=== PATIENT | female | born 1940 | race American Indian/Alaskan Native ===

== ENCOUNTER 2016-08-12 10:08 | Outpatient (CLI) | payer MEDICARE, OTHER ==
--- NOTE | 2016-08-13 09:46 | Nuclear Medicine Report ---
NUCLEAR MEDICINE WHOLE BODY BONE SCAN HISTORY: Left breast cancer, left lymphedema, left arm. TECHNIQUE: Anterior and posterior whole body images were obtained after 25 mCi of technetium 99 M. MDP. FINDINGS: No previous bone scan at this facility. Correlation is made with a PET CT dated 04/18/16. The bone scan images demonstrate mild diffuse increased uptake in the L5 vertebral body. No other areas of suspicious uptake are identified. There is normal renal and soft tissue activity. IMPRESSION: Slightly suspicious increased uptake at the level of L5. Please note that no discrete abnormality is identified in this area on the PET CT dated 04/18/16. This uptake may be degenerative in nature. Consider further evaluation with MRI lumbar spine with and without contrast if needed.
== END 2016-08-12 10:09 | disposition home or self-care (01) ==
LOC: NM 10:08
PROVIDERS: ATTEND Internal Medicine Hematology & Oncology
DX: C50.919 Malignant neoplasm of unspecified site of unspecified female breast (principal); Z80.3 Family history of malignant neoplasm of breast; Z79.899 Other long term (current) drug therapy
CPT/HCPCS: 78306; A9503

== ENCOUNTER 2016-09-09 10:13 | Outpatient (CLI) | payer MEDICARE, OTHER ==
--- NOTE | 2016-09-09 12:53 | Magnetic Resonance Report ---
MRI of the lumbar spine with and without contrast. Procedure: Sagittal T1-weighted, T2-weighted, inversion recovery images, axial T1 and T2-weighted images, and postcontrast sagittal and axial T1-weighted images with fat saturation were used. Findings: There are numerous abnormal areas of hyperintense T2 and hypointense T1 signal throughout the lumbar vertebra. The greatest degree of involvement involves the L4 vertebral body with extension into the left pedicle. There is no evidence of compression fracture. The upper lumbar discs are normal. At L4-5, there is a mild broad-based disc bulge with no evidence of significant impingement or spinal stenosis. Multiple lesions are also seen in the visualized sacrum. Numerous lesions are seen throughout the iliac bones bilaterally, greater on the left. Most of the above lesions demonstrate homogeneous contrast enhancement. Extensive metastatic disease is seen in the T12 vertebra. A prominent left renal cyst is incidentally noted. Impression: Innumerable metastatic lesions throughout the lumbar spine, sacrum, and iliac bones. No compression fractures or extension into the spinal canal is present. However, there is a prominent metastatic lesion involving the left pedicle of the L4 vertebra, as well as other metastatic foci in the posterior elements.
== END 2016-09-09 10:14 | disposition home or self-care (01) ==
LOC: MRI 10:13
PROVIDERS: ATTEND Internal Medicine Hematology & Oncology
DX: C79.51 Secondary malignant neoplasm of bone (principal); C79.89 Secondary malignant neoplasm of other specified sites; I10 Essential (primary) hypertension; M53.87 Other specified dorsopathies, lumbosacral region; N28.1 Cyst of kidney, acquired
CPT/HCPCS: 72158; A9577

== ENCOUNTER 2016-11-05 17:40 | Emergency (ER) | payer MEDICARE, OTHER ==
--- NOTE | 2016-11-05 18:39 | Emergency Department Report ---
Entered by LEEANNA WONG, acting as scribe for JULIO SUTTON NP. Chief Complaint: Abdominal Pain Stated Complaint: LT SIDE PAIN - HPI History of Present Illness: 76 y/o female, nontoxic, well developed, NAD, c/o LUQ abdominal pain beginning last night, aggravated by lying on her left side. Denies fever, chills, NVD, chest pain, SOB, [place], epigastric pain, dizziness, blurry vision. Patient was seen in at [facility] [address] Piper for muscle spasms - Exam Vital Signs: Vital Signs 11/05/16 17:52 Temperature 98.2 F Pulse Rate 78 Respiratory 14 Rate Blood Pressure 158/83 O2 Sat by Pulse 95 Oximetry Physical Exam: GENERAL: The patient is a well-developed, well-nourished male in no apparent distress. Patient is alert and oriented x3. ABDOMEN: Soft, nontender, and nondistended. Positive bowel sounds. Negative for epigastric tenderness. No hepatosplenomegaly was noted. No guarding or rebound tenderness, negative epigastric bruit. Negative psoas sign, negative cadet sign, negative McBurneys sign MSE screening note: Focused history and physical exam performed. Due to findings the following was ordered: CBC, amylase, lipase, CMP, UA, ED Disposition for MSE Condition: Stable Instructions: Abdominal Pain (ED) This documentation as recorded by the scribe,LEEANNA WONG,accurately reflects the service I personally performed and the decisions made by ,JULIO SUTTON, ARNALDO.
[2016-11-05 19:09] LABS: Hematocrit 36.9 % (30.3-42.9); Hemoglobin 12.3 gm/dl (10.1-14.3); Mean Corpuscular HGB Conc 34 % (30-34); Mean Corpuscular Hemoglobin 32 pg (28-32); Mean Corpuscular Volume 94 fl (79-97); Platelet Count 220 K/mm3 (140-440); Red Blood Count 3.91 M/mm3 (3.65-5.03); White Blood Count 5.2 K/mm3 (4.5-11.0)
[2016-11-05 19:23] LABS: Amylase 153 units/L (27-131); Lipase 35 units/L (13-60)
[2016-11-05 19:29] LABS: Alanine Aminotransferase 23 units/L (7-56); Albumin 3.6 g/dL (3.9-5); Albumin/Globulin Ratio 1.2 %; Alkaline Phosphatase 144 units/L (35-129); Anion Gap 15 mmol/L; Blood Urea Nitrogen 18 mg/dL (7-17); Calcium 9.8 mg/dL (8.4-10.2); Carbon Dioxide 28 mmol/L (22-30); Chloride 100.4 mmol/L (98-107); Glucose 138 mg/dL (65-100); Potassium 3.4 mmol/L (3.6-5.0); Sodium 140 mmol/L (137-145); Total Protein 6.5 g/dL (6.3-8.2)
[2016-11-05 20:05] LABS: Basophils % (Manual) 0 % (0.0-1.8); Blastocytes % (Manual) 0 %; Diff Status Complete; Eosinophils % (Manual) 0 % (0.0-4.3); Platelet Estimate Consistent w Auto; RBC Morphology Normal
[2016-11-05 21:52] LABS: Bilirubin,Urine NEG (Negative); Blood,Urine NEG (Negative); Ketones,Urine NEG (Negative); Leukocyte Esterase,Urine LG (Negative); Mucus,Urine FEW /HPF; Nitrite,Urine NEG (Negative); Protein,Urine <15 mg/dL mg/dL (Negative); Urobilinogen,Urine < 2.0 mg/dL (<2.0)
[2016-11-06] MEDS ORDERED: TYLENOL PO ONE (00:16)
--- NOTE | 2016-11-06 00:17 | Emergency Department Report ---
HPI - General Chief Complaint: Abdominal Pain Time Seen by Provider: 11/06/16 00:02 - HPI HPI: The patient is a 76-year-old female who presents for evaluation of left upper quadrant abdominal pain. The patient reports pain for the past 3 days, 10/10 in severity, sharp in quality, exacerbated with lifting of the left arm, and improved with by mouth pain medication. 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 She believes that she has a strained muscle. The patient denies trauma to the chest, flank, or abdomen, fever, chills, night sweats, chest pain, dyspnea, cough, hemoptysis, syncope, vomiting, diarrhea, blood in the stool, dark tarry stool, dysuria, hematuria, flank pain, genital discharge, inability to pass flatus. ED Past Medical Hx - Past Medical History Previous Medical History?: Yes Hx Hypertension: Yes Hx Heart Attack/AMI: No Hx GERD: Yes Hx Liver Disease: No Hx Renal Disease: No Hx of Cancer: Yes (left mastectomy) Hx HIV: No Additional medical history: Muscle spasms - Surgical History Past Surgical History?: Yes Additional Surgical History: partial hyst, left chest port inserted and removed - Social History Smoking Status: Former Smoker Substance Use Type: Prescribed - Medications Home Medications: Home Medications Medication Instructions Recorded Confirmed Last Taken Type Doxazosin Mesylate 8 mg PO DAILY 07/06/13 06/14/14 06/13/14 History Letrozole (Nf) [Femara (Nf)] 2.5 mg PO DAILY 07/06/13 06/14/14 06/13/14 History Rabeprazole Sodium [Aciphex] 20 mg PO DAILY 07/06/13 06/14/14 06/13/14 History Clindamycin [Clindamycin CAP] 300 mg PO Q8H #30 cap NS 07/17/13 06/14/14 Rx Fluticasone [Flonase] 1 spray NS QDAY #1 bottle 06/04/14 06/14/14 06/13/14 Rx Oseltamivir [Tamiflu] 75 mg PO BID 5 Days 06/04/14 06/14/14 06/13/14 Rx Atenolol [Tenormin] 50 mg PO DAILY 12/06/14/14 06/13/14 History Gabapentin 100 mg PO DAILY 06/14/14 06/14/14 06/13/14 History Mag Hydrox/Al Hydrox/Simeth 15 ml PO QID PRN #1 bottle 06/14/14 Unknown Rx [Maalox Advanced Suspension] Olmesartan/Hydrochlorothiazide 1 tab PO QDAY 06/14/14 06/14/14 06/13/14 History [Benicar HCT 40-25 mg] Ondansetron [Zofran Odt] 4 mg PO Q6H PRN #20 tab.rapdis 06/14/14 Unknown Rx Potassium Chloride [KCl 20 meq 20 meq PO QDAY #3 day 06/14/14 Unknown Rx ORAL LIQ] hydrALAZINE [Apresoline] 25 mg PO DAILY 06/14/14 06/14/14 06/13/14 History Acetaminophen/Codeine [Tylenol #3] 1 tab PO Q6H PRN #12 tab 11/06/16 Unknown Rx ED Review of Systems ROS: Stated complaint: LT SIDE PAIN Other details as noted in HPI Constitutional: denies: fever ENT: denies: throat or neck pain Respiratory: denies: cough, shortness of breath Cardiovascular: denies: chest pain Endocrine: denies unexplained weight loss or gain Gastrointestinal: reports abdominal pain, nausea Genitourinary: denies: dysuria Musculoskeletal: denies: leg swelling Skin: denies: rash Neurological: denies: headache Hematological/Lymphatic: denies: easy bleeding or easy bruising Psych: denies sadness or hopelessness Physical Exam - Physical Exam Vital Signs: Vital Signs 11/05/16 17:52 Temperature 98.2 F Pulse Rate 78 Respiratory 14 Rate Blood Pressure 158/83 O2 Sat by Pulse 95 Oximetry Physical Exam: General: well-nourished, well-developed, no acute distress Head: Normocephalic, atraumatic Eyes: normal sclera ENT: Mucous membranes are pink and moist Neck: trachea midline, neck supple, No neck stiffness, no cervical adenopathy Respiratory: Breath sounds equal bilaterally, no wheezing, rales, or rhonchi Cardio: S1 and S2 present, no murmurs, rubs, gallops, capillary refill is brisk Abdomen: Normoactive bowel sounds, soft abdomen, left upper quadrant tenderness to palpation present, no rigidity, no guarding or rebound tenderness Chest WALL/Back: tenderness to palpation to the left lower chest wall/ intercostal space 8-9 at the anterior and midaxillary lines, no redness, ecchymosis, swelling, crepitus, or paradoxical chest wall movement, no CVA tenderness with percussion Musc: No pitting edema Skin: No rash Neuro: no facial drooping, normal speech Psych: Normal affect ED Course Vital Signs 11/05/16 17:52 Temperature 98.2 F Pulse Rate 78 Respiratory 14 Rate Blood Pressure 158/83 O2 Sat by Pulse 95 Oximetry ED Medical Decision Making - Lab Data Result diagrams: 11/05/16 18:38 11/05/16 18:38 - Medical Decision Making The patient was seen and examined by myself. The patient is placed on a traffic monitor specialist and continuous pulse ox. On initial evaluation, the patient was found to be in no distress. Evaluation orders are placed. The patient is given a Tylenol Tylenol for her pain. Lab results were non-concerning including WBC, hemoglobin, hematocrit, electrolytes, renal function, LFTs, lipase, and urinalysis. The patient was reevaluated and reported that their symptoms were markedly improved. The patient is stable for discharge with outpatient follow- up. The patient is given follow-up and return instructions. The patient expressed understanding and agreed with the plan. The patient is discharged in stable condition. Critical care attestation.: If time is entered above; I have spent that time in minutes in the direct care of this critically ill patient, excluding procedure time. ED Disposition Clinical Impression: Rib pain on left side, Acute abdominal pain in left upper quadrant Disposition: DISCHARGED TO HOME OR SELFCARE Is pt being admited?: No Does the pt Need Aspirin: No Condition: Stable Instructions: Muscle Strain (ED), Costochondritis (ED), Musculoskeletal Pain ( ED), Abdominal Pain (ED) Additional Instructions: Do not take more than the prescribed dose of tylenol#3/pain medicine, or combine or take the pain medicine prescribed to you today with other pain medicine, sleeping medicine or other sedatives, or with alcohol, as doing so may cause central nervous system sedation and respiratory depression, and potentially cause you to stop breathing and . Additionally, do not drive a vehicle, operate heavy machinery, or engage in any activity that would cause harm to yourself or others after taking the pain medicine prescribed to you. Prescriptions: Acetaminophen/Codeine [Tylenol #3] 1 tab PO Q6H PRN #12 tab PRN Reason: Pain Referrals: PRIMARY CARE,MD [Primary Care Provider] - 3-5 Days Time of Disposition: 00:16
[2016-11-06 01:17] VITALS: BP 203/85
== END 2016-11-06 01:18 | disposition home or self-care (01) ==
LOC: ED 17:40
DX: R10.12 Left upper quadrant pain (principal); R07.81 Pleurodynia; I10 Essential (primary) hypertension; K21.9 Gastro-esophageal reflux disease without esophagitis; Z90.12 Acquired absence of left breast and nipple; Z98.890 Other specified postprocedural states; Z87.891 Personal history of nicotine dependence
CPT/HCPCS: 36415; 80053; 81001; 82150; 83690; 85007; 85025; 99283

== ENCOUNTER 2016-12-05 13:43 | Outpatient (CLI) | payer MEDICARE, OTHER ==
--- NOTE | 2016-12-06 15:18 | PET Report ---
PET/CT:12/05/16 13:43:00 CLINICAL: RADIOPHARMACEUTICAL: mCi F18-FDG. COMPARISON: PET/CT TECHNIQUE- Following intravenous injection of F-18 FDG and an approximately 60 minute uptake period, CT and PET images from the mid skull to the upper thighs were acquired with the patient in the fasted state. No contrast was administered. The CT protocol used for this PET CT study is designed for attenuation correction and anatomic localization of PET abnormalities. This drafter heating and ventilating CT is not desired to produce and cannot replace, [id number] diagnostic CT scans with specific imaging protocols for different body parts and indications. Plasma glucose at the time of this test: g/dl. The standardized uptake values (SUV) are normalized to patient body weight and indicate the highest activity concentration (SUV max) in a given disease site. FINDINGS: Brain--Physiologic FDG uptake in the visualized regions of the brain. Neck--Physiologic FDG uptake . Chest--Physiologic FDG uptake in mediastinal blood pool and myocardium. Lungs--An irregular 1.7 x 1.7 cm pleural-based left lower lobe FDG avid mass with SUV 3.4. Bilateral multilobar non-FDG avid reticulonodular lung opacities are suspicious for metastasis. Pleura/pericardium--No abnormal uptake. However, new bilateral small pleural effusions. Thoracic nodes--No abnormal uptake. Hepatobiliary--Too numerous to count hypodense FDG avid hepatic masses.The largest is in the medial segment of the left lobe and measures 2.5 x 2.0 cm with SUV 7.1. Spleen--No abnormal uptake. Pancreas--No abnormal uptake. Adrenal Glands--No abnormal uptake. Kidneys/Ureters/Bladder--No abnormal uptake. Abdominopelvic Nodes--No abnormal uptake. Bowel/Peritoneum/Mesentery--No abnormal uptake. Pelvic organs--No abnormal uptake. Bones/Soft Tissues--Too numerous to count FDG avid predominantly lytic skeletal lesions involving the cervical, thoracic and lumbar spine and bony pelvis. A right C2 body lytic metastasis with SUV 5.6. A left T5 lamina metastasis with SUV 4.9. Several bilateral FDG avid rib lesions. No obvious extension into the spinal canal at any level. Other findings: Status post left mastectomy. IMPRESSION- 1. Extensive new hepatic and predominantly lytic skeletal metastases which have developed since the prior CT/PET 2. New bilateral pleural effusions and new multilobar bilateral reticulonodular lung opacities are suspicious for lymphangitic pulmonary metastasis.
== END 2016-12-05 13:44 | disposition home or self-care (01) ==
LOC: PET 13:43
PROVIDERS: ATTEND Internal Medicine Hematology & Oncology
DX: C79.51 Secondary malignant neoplasm of bone (principal); C50.912 Malignant neoplasm of unspecified site of left female breast; D64.9 Anemia, unspecified; I10 Essential (primary) hypertension; R91.8 Other nonspecific abnormal finding of lung field; J90 Pleural effusion, not elsewhere classified; K76.89 Other specified diseases of liver; Z87.891 Personal history of nicotine dependence
CPT/HCPCS: 78815; 82962; A9552

== ENCOUNTER 2016-12-31 17:02 | Emergency (ER) | payer MEDICARE, OTHER ==
--- NOTE | 2016-12-31 17:17 | Emergency Department Report ---
Chief Complaint: Nausea/Vomiting/Diarrhea Stated Complaint: DIZZY/DEHYDRATION Time Seen by Provider: 12/31/16 17:13 - HPI History of Present Illness: PT states she has had 5 radiation treatments for breast cancer. PT states she has not eaten much for the last week. PT states today she started having diarrhea. PT states she saw her MD yesterday and was told, if worsening, go to the ED. PT denies pain mild relief with Immodium - ROS Review of Systems: - fevers + n, v, d decrease po intake. - Exam Physical Exam: Pt is alert and appropriate abd is soft and non tender pt tolerating sips of water in triage MSE screening note: Focused history and physical exam performed. Due to findings the following was ordered: labs ED Disposition for MSE Condition: Stable
[2016-12-31 18:03] LABS: Hematocrit 35.1 % (30.3-42.9); Hemoglobin 11.8 gm/dl (10.1-14.3); Mean Corpuscular HGB Conc 34 % (30-34); Mean Corpuscular Hemoglobin 32 pg (28-32); Mean Corpuscular Volume 95 fl (79-97); Red Blood Count 3.68 M/mm3 (3.65-5.03); Red Cell Distribution Width 13.7 % (13.2-15.2)
[2016-12-31 18:09] LABS: Alanine Aminotransferase 13 units/L (7-56); Albumin 3.7 g/dL (3.9-5); Albumin/Globulin Ratio 1.4 %; Alkaline Phosphatase 141 units/L (35-129); Anion Gap 26 mmol/L; Blood Urea Nitrogen 20 mg/dL (7-17); Calcium 8.9 mg/dL (8.4-10.2); Carbon Dioxide 15 mmol/L (22-30); Chloride 98.2 mmol/L (98-107); Glucose 111 mg/dL (65-100); Lipase 71 units/L (13-60); Potassium 3.4 mmol/L (3.6-5.0); Sodium 136 mmol/L (137-145); Total Protein 6.4 g/dL (6.3-8.2)
[2016-12-31 18:21] LABS: Platelet Count 65 K/mm3 (140-440); White Blood Count 1.1 K/mm3 (4.5-11.0)
[2016-12-31 18:42] LABS: Bilirubin,Urine NEG (Negative); Blood,Urine NEG (Negative); Ketones,Urine TR mg/dL (Negative); Leukocyte Esterase,Urine TR (Negative); Mucus,Urine FEW /HPF; Nitrite,Urine NEG (Negative); Protein,Urine <15 mg/dL mg/dL (Negative); Urobilinogen,Urine < 2.0 mg/dL (<2.0)
[2016-12-31] MEDS ORDERED: NACL 0.9% 1000 ML 1,000 ML IV ONE (20:22)
[2016-12-31] MEDS ORDERED: ZOFRAN IV ONE (20:23)
[2016-12-31 20:32] LABS: Basophils % (Manual) 0 % (0.0-1.8); Blastocytes % (Manual) 0 %; Eosinophils % (Manual) 0 % (0.0-4.3)
--- NOTE | 2016-12-31 20:32 | Emergency Department Report ---
HPI - General Chief Complaint: Nausea/Vomiting/Diarrhea Time Seen by Provider: 12/31/16 17:13 - HPI HPI: This is a 76-year-old Afro-[place] female presents to the emergency department with the complaint of some nausea without vomiting and copious diarrhea that started after she completed radiation therapy on Friday, one week ago, for left -sided breast cancer. She is been able to keep down fluid but has a very decreased appetite. She has been drinking Pedialyte but has not been interested in the injured. She says she has lost about 15 pounds over the past month. She denies any fever, chest pain, shortness of breath, dysuria. She did take a dose of Imodium today that has started to help with the diarrhea. Her primary care doctor is Dr. Portillo, oncologist is Dr. Cole and radiation oncologist is Dr. Robbins. ED Past Medical Hx - Past Medical History Previous Medical History?: Yes Hx Hypertension: Yes Hx Heart Attack/AMI: No Hx GERD: Yes Hx Liver Disease: No Hx Renal Disease: No Hx of Cancer: Yes Hx HIV: No Additional medical history: Muscle spasms - Surgical History Past Surgical History?: Yes Additional Surgical History: partial hyst, left chest port inserted and removed - Social History Smoking Status: Never Smoker Substance Use Type: None - Medications Home Medications: Home Medications Medication Instructions Recorded Confirmed Last Taken Type Doxazosin Mesylate 8 mg PO DAILY 07/06/13 12/31/16 06/13/14 History Letrozole (Nf) [Femara (Nf)] 2.5 mg PO DAILY 07/06/13 12/31/16 06/13/14 History Rabeprazole Sodium [Aciphex] 20 mg PO DAILY 07/06/13 12/31/16 06/13/14 History Fluticasone [Flonase] 1 spray NS QDAY #1 bottle 06/04/14 12/31/16 06/13/14 Rx Atenolol [Tenormin] 50 mg PO DAILY 06/14/14 12/31/16 06/13/14 History Gabapentin 100 mg PO DAILY 06/14/14 12/31/16 06/13/14 History Potassium Chloride [KCl 20 meq 20 meq PO QDAY #3 day 06/14/14 12/31/16 Unknown Rx ORAL LIQ] hydrALAZINE [Apresoline] 25 mg PO DAILY 06/14/14 12/31/16 06/13/14 History Acetaminophen/Codeine [Tylenol #3] 1 tab PO Q6H PRN #12 tab 11/06/16 12/31/16 Unknown Rx ED Review of Systems ROS: Stated complaint: DIZZY/DEHYDRATION Other details as noted in HPI Comment: All other systems reviewed and negative Constitutional: weakness. denies: fever Eyes: denies: eye pain, eye discharge, vision change ENT: denies: ear pain, throat pain Respiratory: denies: cough, shortness of breath, wheezing Cardiovascular: denies: chest pain, palpitations Gastrointestinal: nausea, diarrhea. denies: vomiting Genitourinary: denies: urgency, dysuria, discharge Musculoskeletal: denies: back pain, joint swelling, arthralgia Skin: denies: rash, lesions Neurological: denies: headache, weakness, paresthesias Physical Exam - Physical Exam Vital Signs: Vital Signs 12/31/16 12/31/16 12/31/16 17:13 19:20 19:30 Temperature 98.5 F Pulse Rate 56 L 71 Respiratory 14 16 Rate Blood Pressure 143/66 162/58 Blood Pressure [Right] O2 Sat by Pulse 96 100 100 Oximetry 12/31/16 19:49 Temperature 98.2 F Pulse Rate 71 Respiratory 16 Rate Blood Pressure Blood Pressure 162/58 [Right] O2 Sat by Pulse 100 Oximetry Physical Exam: GENERAL: The patient is well-developed well-nourished. HEENT: Normocephalic. Atraumatic. Extraocular motions are intact. Patient has moist mucous membranes. Pupils equal reactive to light bilaterally. No nystagmus. Oropharynx is clear. NECK: Supple. Trachea is midline. CHEST/LUNGS: Clear to auscultation. There is no respiratory distress noted. HEART/CARDIOVASCULAR: Regular. There is no tachycardia. There is no gallop rub or murmur. ABDOMEN: Abdomen is soft, nontender. Patient has normal bowel sounds. There is no abdominal distention. SKIN: Skin is warm and dry. NEURO: The patient is awake, alert, and oriented. The patient is cooperative. The patient has no focal neurologic deficits. The patient has normal speech. MUSCULOSKELETAL: There is no tenderness or deformity. There is no limitation range of motion. There is no evidence of acute injury. Muscle strength 5 out of 5 for upper and lower extremities bilaterally. Cap refill less than 2 seconds. Radial pulse +2 over 4 bilaterally. ED Course Vital Signs 12/31/16 12/31/16 12/31/16 17:13 19:20 19:30 Temperature 98.5 F Pulse Rate 56 L 71 Respiratory 14 16 Rate Blood Pressure 143/66 162/58 Blood Pressure [Right] O2 Sat by Pulse 96 100 100 Oximetry 12/31/16 19:49 Temperature 98.2 F Pulse Rate 71 Respiratory 16 Rate Blood Pressure Blood Pressure 162/58 [Right] O2 Sat by Pulse 100 Oximetry ED Medical Decision Making - Lab Data Result diagrams: 12/31/16 17:38 12/31/16 17:38 - EKG Data -: EKG Interpreted by Me EKG shows normal: sinus rhythm, axis, intervals, QRS complexes, ST-T waves Rate: normal - EKG Data When compared to previous EKG there are: previous EKG unavailable Interpretation: normal EKG - Medical Decision Making This is a 76-year-old female presents to the emergency department with complaint of some diarrhea and concern for dehydration. All she described some generalized weakness, the patient has full muscle strength to the upper and lower extremities. There is no sign of any altered mental status or confusion. Her labs are mostly unremarkable. There is leukopenia but the patient has received recent chemotherapy and radiation for her breast cancer. Mild hypokalemia that was her replaced with potassium chloride. She received 1 L of IV fluid resuscitation and upon reevaluation she says she is feeling much improved. She was able to get up and ambulate in the emergency department and appeared stable. She has good follow-up with primary care and to different oncologists. The diarrhea has slowed up if not stopped since being in the emergency department. She will return to the ER with any worsening of her symptoms or any acute distress. Otherwise she will increase oral rehydration at home. - Differential Diagnosis diarrhea, dehydration, gastroenteritis, food poisoning Critical Care Time: No Critical care attestation.: If time is entered above; I have spent that time in minutes in the direct care of this critically ill patient, excluding procedure time. ED Disposition Clinical Impression: Dehydration Hypertension Qualifiers: Hypertension type: essential hypertension Qualified Code(s): I10 - Essential ( primary) hypertension Diarrhea Qualifiers: Diarrhea type: unspecified type Qualified Code(s): R19.7 - Diarrhea, unspecified Disposition: DC-01 TO HOME OR SELFCARE Is pt being admited?: No Condition: Stable Instructions: Dehydration (ED), Acute Diarrhea (ED), Hypertension (ED) Additional Instructions: Increase your oral rehydration. Return to the emergency department with any intractable vomiting, inability to stay hydrated, worsening of your symptoms, or any acute distress. Please follow-up with your primary care doctor in the next few days. Referrals: SHANNAN BRIONES MD [Primary Care Provider] - [facility] Time of Disposition: 23:48
[2016-12-31 20:33] LABS: Anisocytosis 1+; Diff Status Complete; Platelet Estimate Consistent w Auto
[2016-12-31] MEDS ORDERED: K-DUR PO ONE ×2 (21:00→22:00)
[2016-12-31] MEDS ORDERED: POTASSIUM CHLORIDE PO ONE (23:00)
[2016-12-31] MEDS ORDERED: APRESOLINE IV ONE (23:15)
[2017-01-01 00:31] VITALS: BP 155/65
== END 2017-01-01 00:32 | disposition home or self-care (01) ==
LOC: ED 17:02
DX: E86.0 Dehydration (principal); I10 Essential (primary) hypertension; R19.7 Diarrhea, unspecified; C50.912 Malignant neoplasm of unspecified site of left female breast; K21.9 Gastro-esophageal reflux disease without esophagitis; Z88.6 Allergy status to analgesic agent; Z88.0 Allergy status to penicillin; Z88.1 Allergy status to other antibiotic agents; Z88.8 Allergy status to other drugs, medicaments and biological substances
CPT/HCPCS: 36415; 80053; 81001; 83690; 84443; 84484; 85007; 85025; 93005; 93010; 96361; 96374; 99283; J2405; J7030

== ENCOUNTER 2017-02-27 16:44 | Emergency (ER) | payer MEDICARE, OTHER ==
[2017-02-27 17:30] LABS: Hematocrit 32.7 % (30.3-42.9); Hemoglobin 10.7 gm/dl (10.1-14.3); Mean Corpuscular HGB Conc 33 % (30-34); Mean Corpuscular Hemoglobin 36 pg (28-32); Mean Corpuscular Volume 109 fl (79-97); Platelet Count 205 K/mm3 (140-440); White Blood Count 5.2 K/mm3 (4.5-11.0)
[2017-02-27 17:36] LABS: Alanine Aminotransferase 20 units/L (7-56); Albumin 3.7 g/dL (3.9-5); Albumin/Globulin Ratio 1.9 %; Alkaline Phosphatase 69 units/L (35-129); Anion Gap 18 mmol/L; BUN/Creatinine Ratio 24.28; Blood Urea Nitrogen 17 mg/dL (7-17); Calcium 8.5 mg/dL (8.4-10.2); Carbon Dioxide 20 mmol/L (22-30); Chloride 105.6 mmol/L (98-107); Glucose 73 mg/dL (65-100); Lipase 56 units/L (13-60); Potassium 4.1 mmol/L (3.6-5.0); Sodium 139 mmol/L (137-145); Total Protein 5.7 g/dL (6.3-8.2)
[2017-02-27 18:05] LABS: Bilirubin,Urine NEG (Negative); Blood,Urine NEG (Negative); Ketones,Urine TR mg/dL (Negative); Leukocyte Esterase,Urine MOD (Negative); Nitrite,Urine NEG (Negative); Protein,Urine <15 mg/dL mg/dL (Negative); RBC,Urine < 1.0 /HPF (0.0-6.0); Urobilinogen,Urine < 2.0 mg/dL (<2.0); WBC,Urine < 1.0 /HPF (0.0-6.0)
[2017-02-27 18:23] LABS: Basophils % (Manual) 0 % (0.0-1.8); Blastocytes % (Manual) 0 %; Eosinophils % (Manual) 0 % (0.0-4.3); Macrocytosis 1+
[2017-02-27 18:24] LABS: Diff Status Complete; Large Platelets 1+; Platelet Estimate Consistent w Auto; Poikilocytosis 1+; Polychromasia 1+
[2017-02-27 21:07] LABS: Bilirubin,Urine NEG (Negative); Blood,Urine NEG (Negative); Ketones,Urine 20 mg/dL (Negative); Leukocyte Esterase,Urine SM (Negative); Mucus,Urine FEW /HPF; Nitrite,Urine NEG (Negative); Protein,Urine <15 mg/dL mg/dL (Negative); Urobilinogen,Urine < 2.0 mg/dL (<2.0)
[2017-02-27 21:17] LABS: Hematocrit 32.6 % (30.3-42.9); Mean Corpuscular HGB Conc 34 % (30-34); Mean Corpuscular Hemoglobin 36 pg (28-32); Mean Corpuscular Volume 107 fl (79-97); Platelet Count 196 K/mm3 (140-440); Red Blood Count 3.04 M/mm3 (3.65-5.03); Red Cell Distribution Width 25.9 % (13.2-15.2); White Blood Count 4.8 K/mm3 (4.5-11.0)
[2017-02-27] MEDS ORDERED: MORPHINE IV PRN (21:17)
[2017-02-27] MEDS ORDERED: ZOFRAN IV PRN (21:17)
--- NOTE | 2017-02-27 21:25 | Emergency Department Report ---
HPI - General Chief Complaint: Abdominal Pain Time Seen by Provider: 02/27/17 21:01 - HPI HPI: Room 22 The patient is a 76-year-old female presented with a chief complaint of abdominal pain. The patient states for the past week she's had intermittent epigastric abdominal pain that was sharp and cutting in nature. Patient denies nausea vomiting but states she's had diarrhea for 2 weeks after starting ranitidine. Denies chest pain, shortness of breath or diaphoresis. Patient denies any history of fever, dysuria or hematuria. Patient states bowel pain has been intermittent but is not present currently. Patient states she only feels hungry currently. Location: Epigastric region Duration: [see above] Quality: Sharp/cutting Severity: Currently 0/10 Modifying factors: [see above] Context: [see above] Mode of transportation: Unknown ED Past Medical Hx - Past Medical History Previous Medical History?: Yes Hx Hypertension: Yes Hx GERD: Yes Hx of Cancer: Yes (left breast cancer s/p mast/chemo) Additional medical history: Muscle spasms - Surgical History Past Surgical History?: Yes Additional Surgical History: partial hyst, left chest port inserted and removed , left mastectomy - Family History Family history: no significant - Social History Smoking Status: Former Smoker (none 30 years) Substance Use Type: None - Medications Home Medications: Home Medications Medication Instructions Recorded Confirmed Last Taken Type Doxazosin Mesylate 8 mg PO DAILY 07/06/13 02/27/17 06/13/14 History Letrozole (Nf) [Femara (Nf)] 2.5 mg PO DAILY 07/06/13 02/27/17 06/13/14 History Fluticasone [Flonase] 1 spray NS QDAY #1 bottle 06/04/14 02/27/17 06/13/14 Rx Atenolol [Tenormin] 50 mg PO DAILY 06/14/14 02/27/17 06/13/14 History Gabapentin 100 mg PO DAILY 06/14/14 02/27/17 06/13/14 History Potassium Chloride [KCl 20 meq 20 meq PO QDAY #3 day 06/14/14 02/27/17 Unknown Rx ORAL LIQ] hydrALAZINE [Apresoline] 25 mg PO DAILY 06/14/14 02/27/17 06/13/14 History Acetaminophen/Codeine [Tylenol #3] 1 tab PO Q6H PRN #12 tab 11/06/16 02/27/17 Unknown Rx Famotidine [Pepcid] 20 mg PO BID #30 tablet 02/27/17 Unknown Rx HYDROcodone/APAP 5-325 [[place] 1 - 2 each PO Q6HR PRN #14 tablet 02/27/17 Unknown Rx 5/325] ED Review of Systems ROS: Stated complaint: ABDOMINAL PAIN Other details as noted in HPI Comment: All other systems reviewed and negative Constitutional: denies: chills, fever Eyes: denies: eye pain, eye discharge, vision change ENT: denies: ear pain, throat pain Respiratory: denies: cough, shortness of breath, wheezing Cardiovascular: denies: chest pain, palpitations Endocrine: no symptoms reported Gastrointestinal: abdominal pain, diarrhea. denies: nausea, vomiting Genitourinary: denies: urgency, dysuria, discharge Musculoskeletal: denies: back pain, joint swelling, arthralgia Skin: denies: rash, lesions Neurological: denies: headache, weakness, paresthesias Psychiatric: denies: anxiety, depression Hematological/Lymphatic: denies: easy bleeding, easy bruising Physical Exam - Physical Exam Vital Signs: Vital Signs 02/27/17 02/27/17 16:48 20:01 Temperature 98.9 F Pulse Rate 69 74 Respiratory 18 16 Rate Blood Pressure 154/75 Blood Pressure 175/75 [Left] O2 Sat by Pulse 99 100 Oximetry Physical Exam: GENERAL: The patient is well-developed well-nourished female lying on stretcher not appearing to be in acute distress. [] HEENT: Normocephalic. Atraumatic. Extraocular motions are intact. Patient has moist mucous membranes. NECK: Supple. Trachea midline CHEST/LUNGS: Clear to auscultation. There is no respiratory distress noted. HEART/CARDIOVASCULAR: Regular. There is no tachycardia. There is no gallop rub or murmur. ABDOMEN: Abdomen is soft, with mild discomfort to palpation in the epigastric region. Patient has normal bowel sounds. There is no abdominal distention. SKIN: There is no rash. There is no edema. There is no diaphoresis. NEURO: The patient is awake, alert, and oriented. The patient is cooperative. The patient has normal speech MUSCULOSKELETAL: There is no evidence of acute injury. ED Course Vital Signs 02/27/17 02/27/17 16:48 20:01 Temperature 98.9 F Pulse Rate 69 74 Respiratory 18 16 Rate Blood Pressure 154/75 Blood Pressure 175/75 [Left] O2 Sat by Pulse 99 100 Oximetry - Consultations Consultation #1: 02/27/17 23:13 Dr. Kelsey lugo ED Medical Decision Making - Lab Data Result diagrams: 02/27/17 21:02 02/27/17 21:02 Laboratory Tests 02/27/17 02/27/17 02/27/17 16:59 16:59 17:35 WBC 5.2 RBC 3.00 L Hgb 10.7 Hct 32.7 MCV 109 H MCH 36 H MCHC 33 RDW 26.0 H Plt Count 205 [place] % (Auto) Card Grinder Helper Add Manual Diff Complete Total Counted 100 Seg Neuts % (Manual) 70.0 Band Neutrophils % 0 Lymphocytes % (Manual) 6.0 L Reactive Lymphs % (Man) 0 Monocytes % (Manual) 22.0 H Eosinophils % (Manual) 0 Basophils % (Manual) 0 Metamyelocytes % 2.0 Myelocytes % 0 Promyelocytes % 0 Blast Cells % 0 Nucleated RBC % 3.0 H Seg Neutrophils # Man 3.6 Band Neutrophils # 0.0 Lymphocytes # (Manual) 0.3 L Abs React Lymphs (Man) 0.0 Monocytes # (Manual) 1.1 H Eosinophils # (Manual) 0.0 Basophils # (Manual) 0.0 Metamyelocytes # 0.1 Myelocytes # 0.0 Promyelocytes # 0.0 Blast Cells # 0.0 WBC Morphology Not Reportable Hypersegmented Neuts Not Reportable Hyposegmented Neuts Not Reportable Hypogranular Neuts Not Reportable Smudge Cells Not Reportable Toxic Granulation Not Reportable Toxic Vacuolation Not Reportable Dohle Bodies Not Reportable Pelger-Huet Anomaly Not Reportable Lissette Rods Not Reportable Platelet Estimate Consistent w auto Clumped Platelets Not Reportable Plt Clumps, EDTA Not Reportable Large Platelets 1+ Giant Platelets Not Reportable Platelet Satelliting Not Reportable Plt Morphology Comment Not Reportable RBC Morphology Not Reportable Dimorphic RBCs Not Reportable Polychromasia 1+ Hypochromasia Not Reportable Poikilocytosis 1+ Anisocytosis Not Reportable Microcytosis Not Reportable Macrocytosis 1+ Spherocytes Not Reportable Pappenheimer Bodies Not Reportable Sickle Cells Not Reportable Target Cells Not Reportable Tear Drop Cells Not Reportable Ovalocytes Not Reportable Helmet Cells Not Reportable Presley-Justin Bodies Not Reportable [place] Rings Not Reportable Brady Cells Not Reportable Bite Cells Not Reportable Crenated Cell Not Reportable Elliptocytes Not Reportable Acanthocytes (Spur) Not Reportable Rouleaux Not Reportable Hemoglobin C Crystals Not Reportable Schistocytes Not Reportable Malaria parasites Not Reportable Ricardo Bodies Not Reportable Hem Pathologist Commnt No Sodium 139 Potassium 4.1 Chloride 105.6 Carbon Dioxide 20 L Anion Gap 18 BUN 17 Creatinine 0.7 Estimated GFR > 60 BUN/Creatinine Ratio 24.28 Glucose 73 Calcium 8.5 Total Bilirubin 0.80 AST 18 ALT 20 Alkaline Phosphatase 69 Total Creatine Kinase CK-MB (CK-2) CK-MB (CK-2) Rel Index Troponin T Total Protein 5.7 L Albumin 3.7 L Albumin/Globulin Ratio 1.9 Lipase 56 Urine Color Yellow Urine Turbidity Slightly-cloudy Urine pH 6.0 Ur Specific [place] 1.017 Urine Protein <15 mg/dl Urine Glucose (UA) Neg Urine Ketones Tr Urine Blood Neg Urine Nitrite Neg Urine Bilirubin Neg Urine Urobilinogen < 2.0 Ur Leukocyte Esterase Mod Urine WBC (Auto) < 1.0 Urine RBC (Auto) < 1.0 U Epithel Cells (Auto) 1.0 Urine Mucus Blood Type Antibody Screen 02/27/17 02/27/17 02/27/17 20:38 21:02 21:02 WBC 4.8 RBC 3.04 L Hgb 11.0 Hct 32.6 MCV 107 H MCH 36 H MCHC 34 RDW 25.9 H Plt Count 196 [place] % (Auto) Card Grinder Helper Add Manual Diff Complete Total Counted 100 Seg Neuts % (Manual) 79.0 H Band Neutrophils % 0 Lymphocytes % (Manual) 9.0 L Reactive Lymphs % (Man) 0 Monocytes % (Manual) 12.0 H Eosinophils % (Manual) 0 Basophils % (Manual) 0 Metamyelocytes % 0 Myelocytes % 0 Promyelocytes % 0 Blast Cells % 0 Nucleated RBC % Not Reportable Seg Neutrophils # Man 3.8 Band Neutrophils # 0.0 Lymphocytes # (Manual) 0.4 L Abs React Lymphs (Man) 0.0 Monocytes # (Manual) 0.6 Eosinophils # (Manual) 0.0 Basophils # (Manual) 0.0 Metamyelocytes # 0.0 Myelocytes # 0.0 Promyelocytes # 0.0 Blast Cells # 0.0 WBC Morphology Not Reportable Hypersegmented Neuts Not Reportable Hyposegmented Neuts Not Reportable Hypogranular Neuts Not Reportable Smudge Cells Not Reportable Toxic Granulation Not Reportable Toxic Vacuolation Not Reportable Dohle Bodies Not Reportable Pelger-Huet Anomaly Not Reportable Lissette Rods Not Reportable Platelet Estimate Consistent w auto Clumped Platelets Not Reportable Plt Clumps, EDTA Not Reportable Large Platelets Few Giant Platelets Rare Platelet Satelliting Not Reportable Plt Morphology Comment Not Reportable RBC Morphology Not Reportable Dimorphic RBCs Not Reportable Polychromasia Few Hypochromasia Not Reportable Poikilocytosis 1+ Anisocytosis 2+ Microcytosis Not Reportable Macrocytosis 1+ Spherocytes Not Reportable Pappenheimer Bodies Not Reportable Sickle Cells Not Reportable Target Cells Not Reportable Tear Drop Cells Not Reportable Ovalocytes Not Reportable Helmet Cells Not Reportable Presley-Justin Bodies Not Reportable [place] Rings Not Reportable Brady Cells Not Reportable Bite Cells Not Reportable Crenated Cell Not Reportable Elliptocytes Not Reportable Acanthocytes (Spur) Not Reportable Rouleaux Not Reportable Hemoglobin C Crystals Not Reportable Schistocytes Not Reportable Malaria parasites Not Reportable Ricardo Bodies Not Reportable Hem Pathologist Commnt No Sodium 140 Potassium 4.1 Chloride 105.2 Carbon Dioxide 20 L Anion Gap 19 BUN 17 Creatinine 0.7 Estimated GFR > 60 BUN/Creatinine Ratio 24.28 Glucose 68 Calcium 8.4 Total Bilirubin 0.90 AST 17 ALT 19 Alkaline Phosphatase 70 Total Creatine Kinase CK-MB (CK-2) CK-MB (CK-2) Rel Index Troponin T Total Protein 5.7 L Albumin 3.6 L Albumin/Globulin Ratio 1.7 Lipase Urine Color Yellow Urine Turbidity Clear Urine pH 6.0 Ur Specific [place] 1.016 Urine Protein <15 mg/dl Urine Glucose (UA) Neg Urine Ketones 20 Urine Blood Neg Urine Nitrite Neg Urine Bilirubin Neg Urine Urobilinogen < 2.0 Ur Leukocyte Esterase Sm Urine WBC (Auto) 2.0 Urine RBC (Auto) 1.0 U Epithel Cells (Auto) < 1.0 Urine Mucus Few Blood Type Antibody Screen 02/27/17 02/27/17 21:02 21:03 WBC RBC Hgb Hct MCV MCH MCHC RDW Plt Count [place] % (Auto) Add Manual Diff Total Counted Seg Neuts % (Manual) Band Neutrophils % Lymphocytes % (Manual) Reactive Lymphs % (Man) Monocytes % (Manual) Eosinophils % (Manual) Basophils % (Manual) Metamyelocytes % Myelocytes % Promyelocytes % Blast Cells % Nucleated RBC % Seg Neutrophils # Man Band Neutrophils # Lymphocytes # (Manual) Abs React Lymphs (Man) Monocytes # (Manual) Eosinophils # (Manual) Basophils # (Manual) Metamyelocytes # Myelocytes # Promyelocytes # Blast Cells # WBC Morphology Hypersegmented Neuts Hyposegmented Neuts Hypogranular Neuts Smudge Cells Toxic Granulation Toxic Vacuolation Dohle Bodies Pelger-Huet Anomaly Lissette Rods Platelet Estimate Clumped Platelets Plt Clumps, EDTA Large Platelets Giant Platelets Platelet Satelliting Plt Morphology Comment RBC Morphology Dimorphic RBCs Polychromasia Hypochromasia Poikilocytosis Anisocytosis Microcytosis Macrocytosis Spherocytes Pappenheimer Bodies Sickle Cells Target Cells Tear Drop Cells Ovalocytes Helmet Cells Presley-Justin Bodies [place] [address] Cells Bite Cells Crenated Cell Elliptocytes Acanthocytes (Spur) Rouleaux Hemoglobin C Crystals Schistocytes Malaria parasites Ricardo Bodies Hem Pathologist Commnt Sodium Potassium Chloride Carbon Dioxide Anion Gap BUN Creatinine Estimated GFR BUN/Creatinine Ratio Glucose Calcium Total Bilirubin AST ALT Alkaline Phosphatase Total Creatine Kinase 54 CK-MB (CK-2) 1.1 CK-MB (CK-2) Rel Index 2.0 Troponin T < 0.010 Total Protein Albumin Albumin/Globulin Ratio Lipase Urine Color Urine Turbidity Urine pH Ur Specific [place] Urine Protein Urine Glucose (UA) Urine Ketones Urine Blood Urine Nitrite Urine Bilirubin Urine Urobilinogen Ur Leukocyte Esterase Urine WBC (Auto) Urine RBC (Auto) U Epithel Cells (Auto) Urine Mucus Blood Type B NEGATIVE Antibody Screen Negative - EKG Data -: EKG Interpreted by Me EKG shows normal: sinus rhythm Rate: normal - EKG Data When compared to previous EKG there are: no significant change Interpretation: nonspecific ST-T wave helen (T-wave inversion in lead V2) - Radiology Data Radiology results: report reviewed (CT abdomen and pelvis), image reviewed (CT abdomen and pelvis) CT abdomen and pelvis (read by radiologist) sees-diffuse metastases or suspected bones liver, possible small metastases are seen in the spleen. Her CHF and likely pulmonary edema with small pleural effusions. Stomach is not distended but there is questionable mild thickening and edema within the wall of the antrum. Consideration should be given to gastritis. - Medical Decision Making Review of medical records reveals patient had a PET scan 12/05/2016 which revealed too numerous to count hypodense FDG avid hepatic masses - Differential Diagnosis pancreatitis, peptic ulcer disease, GERD, colitis, intraperitoneal metastas Critical care attestation.: If time is entered above; I have spent that time in minutes in the direct care of this critically ill patient, excluding procedure time. ED Disposition Clinical Impression: Abdominal pain, Metastatic breast cancer, Gastritis Disposition: - TO HOME OR SELFCARE Is pt being admited?: No Does the pt Need Aspirin: No Condition: Stable Instructions: Abdominal Pain (ED) Additional Instructions: Return to the emergency department immediately should you develop worsening symptoms, fever, inability to tolerate food or liquid or any other concerns. Prescriptions: Famotidine [Pepcid] 20 mg PO BID #30 tablet HYDROcodone/APAP 5-325 [[place] 5/325] 1 - 2 each PO Q6HR PRN #14 tablet PRN Reason: Pain Referrals: SHANNAN BRIONES MD [Primary Care Provider] - 3-5 Days IRISH ENRIQUE MD [Staff Physician] - 3-5 Days SABIHA HARRY MD [Staff Physician] - 3-5 Days (Dr. Harry is a operating room rn. Please follow-up with him for further evaluation) Time of Disposition: 23:21
[2017-02-27 21:37] LABS: Alanine Aminotransferase 19 units/L (7-56); Albumin 3.6 g/dL (3.9-5); Albumin/Globulin Ratio 1.7 %; Alkaline Phosphatase 70 units/L (35-129); Anion Gap 19 mmol/L; BUN/Creatinine Ratio 24.28; Blood Urea Nitrogen 17 mg/dL (7-17); Calcium 8.4 mg/dL (8.4-10.2); Carbon Dioxide 20 mmol/L (22-30); Chloride 105.2 mmol/L (98-107); Glucose 68 mg/dL (65-100); Potassium 4.1 mmol/L (3.6-5.0); Sodium 140 mmol/L (137-145); Total Protein 5.7 g/dL (6.3-8.2)
[2017-02-27 21:39] LABS: Creatine Kinase MB 1.1 ng/mL (0.0-4.0)
[2017-02-27 21:40] LABS: Creatine Kinase 54 units/L (30-135)
[2017-02-27] MEDS ORDERED: NACL ONE (21:42)
[2017-02-27 21:54] LABS: Basophils % (Manual) 0 % (0.0-1.8); Blastocytes % (Manual) 0 %; Eosinophils % (Manual) 0 % (0.0-4.3); Large Platelets Few; Platelet Estimate Consistent w Auto
[2017-02-27 21:55] LABS: Anisocytosis 2+; Diff Status Complete; Giant Platelets Rare; Macrocytosis 1+; Poikilocytosis 1+; Polychromasia Few
--- NOTE | 2017-02-27 22:50 | Cat Scan Report ---
FINAL REPORT PROCEDURE: CT ABDOMEN PELVIS W CON TECHNIQUE: Computerized axial tomography of the abdomen and pelvis was performed after the IV injection of iodinated nonionic contrast. HISTORY: epigastric abd pain. H/O metastatic breast CA COMPARISON: No prior studies are available for comparison. FINDINGS: CHF and pulmonary edema are suspected. Small pleural effusions are suspected and there is likely mild atelectasis in the lungs. Small pericardial effusion is seen. Diffuse masses are seen throughout the liver likely due to metastatic disease. Largest mass is seen in the left hepatic lobe measuring 2.2 cm in diameter. The gallbladder and pancreas appear normal. Two tiny hypodensities are seen in the inferior tip of the spleen measuring up to 6 millimeters in size. There may be a few other similar tiny lesions in the mid aspect of the spleen. These lesions are not seen on delayed imaging and are worrisome for possible metastatic disease. The adrenal glands and abdominal aorta are normal in size. Probable bilateral renal cysts are seen. Most of these are small but there is an exophytic 4.3 cm cyst suspected in the lower pole of the left kidney. Bladder appears normal. Tiny left inguinal hernia is seen containing fat. Minimal low-density free pelvic fluid is seen. Normal appendix is seen. No evidence of bowel obstruction is seen. Stomach is decompressed. Questionable wall thickening and fluid is seen in the antrum of the stomach. Gastritis is not excluded. Shotty lymph nodes are seen in the abdomen and pelvis. Diffuse bony metastases are seen which arm mixed lytic and sclerotic. 25 percent anterior compression deformity is seen of T11. Prominent central compression deformity is seen of L5. Mild central compression deformity is seen of L1. These may be osteoporotic fractures. IMPRESSION: Diffuse metastases are suspected in the bones and liver. Possible small metastases are seen in the spleen. There is CHF and likely pulmonary edema with small pleural effusions. Stomach is not distended but there is questionable mild thickening and edema within the wall of the antrum. Consideration should be given to gastritis. Possible pathologic compression fractures are seen in the spine.
[2017-02-27 23:44] VITALS: BP 151/85
== END 2017-02-27 23:43 | disposition home or self-care (01) ==
LOC: ED 16:44
DX: K29.70 Gastritis, unspecified, without bleeding (principal); C79.81 Secondary malignant neoplasm of breast; C80.1 Malignant (primary) neoplasm, unspecified; I10 Essential (primary) hypertension; K21.9 Gastro-esophageal reflux disease without esophagitis; Z87.891 Personal history of nicotine dependence
CPT/HCPCS: 36415; 74177; 80053; 81001; 82550; 82553; 83690; 84484; 85007; 85025; 86850; 86900; 86901; 87086; 93005; 93010; 99284; Q9967

== ENCOUNTER 2017-08-07 09:39 | Outpatient (CLI) | payer MEDICARE, OTHER ==
--- NOTE | 2017-08-07 14:21 | PET Report ---
PET/CT:08/07/17 09:39:00 CLINICAL: Breast cancer restaging. RADIOPHARMACEUTICAL: 12.46mCi F18-FDG. COMPARISON: 04/24/17 PET/CT TECHNIQUE- Following intravenous injection of F-18 FDG and an approximately 60 minute uptake period, CT and PET images from the mid skull to the upper thighs were acquired with the patient in the fasted state. No contrast was administered. The CT protocol used for this PET CT study is designed for attenuation correction and anatomic localization of PET abnormalities. This build technician CT is not desired to produce and cannot replace, [id number] diagnostic CT scans with specific imaging protocols for different body parts and indications. Plasma glucose at the time of this test: 98g/dl. The standardized uptake values (SUV) are normalized to patient body weight and indicate the highest activity concentration (SUV max) in a given disease site. FINDINGS: Brain--Physiologic FDG uptake in the visualized regions of the brain. Neck--Physiologic FDG uptake . Chest--Physiologic FDG uptake in mediastinal blood pool and myocardium. Lungs--No abnormal uptake. No pulmonary nodule or mass. Pleura/pericardium--No abnormal uptake. Bilateral pleural effusions have increased in size. Thoracic nodes--No abnormal uptake. Hepatobiliary--The liver is smaller with new anterior surface nodularity and new perihepatic ascites. Previously identified hypodense liver masses are not identified. However, there is an overall increased FDG uptake in the medial segment of the left lobe with SUV 6.5. There is no correlating hypodense lesion on CT. The Liver background SUV mean, as a reference for comparing FDG studies, is 4.5 compared to four on the last exam. Spleen--No abnormal uptake. Pancreas--No abnormal uptake. Adrenal Glands--No abnormal uptake. Kidneys/Ureters/Bladder--No abnormal uptake. Abdominopelvic Nodes--No abnormal uptake. Bowel/Peritoneum/Mesentery--No abnormal uptake. Pelvic organs--No abnormal uptake. Bones/Soft Tissues--Previously identified mixed lytic and blastic skeletal metastases are stable except for a few lesions which are slightly increased in density. None are FDG avid. New mild relatively uniform FDG uptake in the T5 vertebral body with SUV 3.3 is more suspicious for a new compression fracture with minimal loss of height in the body. Other findings: Status post left mastectomy. IMPRESSION-1. Bilateral pleural effusions have increased in size but no evidence of pulmonary metastasis and no suspicious FDG uptake in the chest. 2. Changes in the liver which are typical of cirrhosis or pseudocirrhosis. 3. Increased FDG uptake in the left hepatic lobe compared to the last exam is of uncertain significance given that distinct masses are not identified on CT. 4. Stable skeletal metastasis with a positive treatment response. 5. Probable new T5 wedge compression fracture with minimal loss of height in the vertebra.
== END 2017-08-07 09:40 | disposition home or self-care (01) ==
LOC: PET 09:39
PROVIDERS: ATTEND Internal Medicine Hematology & Oncology
DX: C79.51 Secondary malignant neoplasm of bone (principal); C50.912 Malignant neoplasm of unspecified site of left female breast; J90 Pleural effusion, not elsewhere classified; R29.890 Loss of height; Z79.899 Other long term (current) drug therapy
CPT/HCPCS: 78815; 82962; A9552